=== PATIENT | female | born 1990 | race Hispanic/Latino ===

== ENCOUNTER 2024-07-22 20:30 | Observation (INO) | payer BC, SELFPAY ==
[2024-07-22 15:51] VITALS: BP 129/73
[2024-07-22 15:59] VITALS: BP 129/73
[2024-07-22 16:02] VITALS: BMI 27.0
--- NOTE | 2024-07-22 16:24 | ED.GENMED ---
History of Present Illness
General
Chief Complaint: Fall
Source: patient
Exam Limitations: none
Time Seen by Provider: 07/22/24 16:15
Nursing documentation reviewed up to this point in time: agreed with
History of Present Illness
History of Present Illness:
33-year-old female with history of asthma presents to the ER for evaluation of left flank pain after a fall. Patient was walking down a short set of stairs�3 total stairs. She said she slipped at the top and fell onto her left side. No head
strike but she injured her left flank/ribs. She has had severe pain since. EMS called and brought her to the emergency room for assessment. Denies any headache or neck pain. She denies any abdominal pain. She denies any shortness of breath.
She denies any injuries to her extremities. Denies being on blood thinners. She did receive IV fentanyl for pain control from EMS.
Review of Systems
Review of Systems
All Other Systems: ROS reviewed and negative except as documented in HPI and ROS
Constitutional: Denies fever
Respiratory: Denies trouble breathing
Cardiac: Denies chest pain
ABD/GI: Denies abdominal pain, nausea or vomiting
: Reports flank pain
Musculoskeletal: Reports back pain; Denies joint pain or neck pain
Neurological: Denies headache
Phy Exam
Physical Exam
Physical Exam:
General: Awake, alert; crying in bed appears very uncomfortable
Head: Normocephalic, atraumatic
Eyes: Conjunctiva normal, pupils equal round and reactive to light bilaterally
Throat: Airway intact, handling secretions
Neck: Trachea midline, no cervical spine tenderness
Lungs: Clear to auscultation bilaterally, no wheezing, rales, rhonchi
Heart: Regular rate and rhythm, no murmurs, gallops, or rubs; no anterior chest wall tenderness or crepitus
Abd: Soft, non distended, nontender
Back: Patient has severe tenderness posterior lateral left lower ribs and in the left lumbar region; no midline tenderness of the thoracic or lumbar spine and no spinal step-offs
Neuro: No gross deficits
Skin: No lacerations, abrasions, or ecchymosis noted
Extremities: Atraumatic, no reproducible tenderness in extremities, moving all extremities comfortably although she has pain in the left flank with flexion of her hips
Scores
Heart Failure Risk
Heart Failure Risk Score: Not Applicable
Heart Score for Chest Pain Patients
STEMI patient?: Not applicable
Withdrawal Assessment of Alcohol
Withdrawal Assessment Completed?: Not applicable
Course
Orders/Labs/Results
Orders:
Orders
07/22/24 16:16
CT Chest/abd/pel W Iv Cont Urgent
Comment:
Reason For Exam: severe left flank pain s/p fall down steps
Morphine Sulfate 4 mg IV NOW STA
07/22/24 16:17
Test Result ONCE
07/22/24 16:24
Acetaminophen [Tylenol] 1,000 mg PO NOW STA
07/22/24 16:47
Type+Screen Urgent
Complete Blood Count/With Diff Urgent
Comprehensive Metabolic Panel Urgent
HCG, Serum Qualitative Screen Urgent
Lipase Urgent
PTT Urgent
Prothrombin Time Urgent
07/22/24 17:52
Ketorolac [Toradol] 15 mg IV NOW STA
07/22/24 18:17
ABO2 Urgent
BBK Wristband Number:
Associate notified that ABO2 has been ordered: [id number]
Date: 07/22/24
Time: 16:58
Supervisor [employer] ID: [id number]
07/22/24 18:42
Oxycodone [Roxicodone] 5 mg PO NOW STA
Abnormal Lab Results
07/22/24
16:47
MPV 11.9 H fL
(7.4-10.4)
Abs Immat Gran (auto) 0.1 H 10^3/uL
(0-0.05)
Absolute Neuts (auto) 8.2 H 10^3/uL
(1.4-6.5)
Immature Gran % 0.6 H %
(0-0.5)
Neutrophils % 77.6 H %
(42.2-75.2)
Lymphocytes % 16.0 L %
(20.5-51.1)
Chloride 108 H mmol/L
(98-107)
Carbon Dioxide 17 L mmol/L
(22-30)
07/22/24 16:47
07/22/24 16:47
Vital Signs
Initial and Last Documented VS:
Initial Vital Signs
Temp Pulse Resp BP Pulse Ox
36.3 C 78 22 129/73 100
07/22/24 15:51 07/22/24 15:51 07/22/24 15:51 07/22/24 15:51 07/22/24 15:51
Last Documented Vital Signs
Temp Pulse Resp BP Pulse Ox
36.3 C 78 22 125/75 100
07/22/24 15:51 07/22/24 15:59 07/22/24 15:51 07/22/24 18:11 07/22/24 18:30
MDM/Problems Addressed
Differential Diagnosis Includes:
Rib fracture, flank hematoma, muscle strain, splenic injury, renal injury, vertebral fracture, pelvic fracture
MDM/Problems Addressed:
33-year-old female presents after a slip and fall as described above. Complaining of severe left flank pain. Vitals and exam as above. Place an IV check labs including a CBC and a CMP, type and screen. Check hCG. Sent for a CT of the
chest/abdomen/pelvis. IV morphine for pain control. Monitor closely reassess after the above.
Labs reviewed: CBC and CMP no clinically significant abnormalities. Her hCG is negative. CT of the chest/abdomen/pelvis shows nondisplaced L2 transverse process fracture but no other acute posttraumatic injuries. Plan for discharge, follow-up
with PCP as an outpatient.
After initial plan for discharge patient was having significant pain when she tried to get up out of bed she feels that she cannot manage her pain and needs to be admitted. Will admit for pain management. Discussed with hospitalist.
*Radiology
Radiology exam reviewed: radiology read reviewed
*Pulse Oximetry
Patient hypoxic: no
*Critical Care Note
Total Time (30-74mins, 75-104mins- exclusive of procedures): Not Applicable
Data Reviewed
Source: patient and spouse
Patient Management
Discussion with other providers: Hospitalist (Discussed with hospitalist)
Escalation/DeEscalation of care consider admission/obs:
Admission indicated
ED Attending Note
-
Portions of this chart may have been created with voice recognition software.� Occasional wrong word or��sound alike� substitutions may have occurred due to the inherent limitations of voice recognition software.
Discharge Plan
Departure
Patient Disposition: Admit
Date of Disposition: 07/22/24
Time of Disposition: 18:48
Admit to doctor: Yisel
Presentation/result/management discussed w/ accepting MD/DO: Hospitalist
Patient with high blood pressure during this ER visit?: No
Discharge Problem:
Closed fracture of transverse process of lumbar vertebra
Prescriptions:
New
oxycodone 5 mg tablet
5 mg PO Q6H PRN (Reason: Pain) Qty: 14 0RF
Interventions
Interventions:
*Risk Screen - Suicide Last Done: 07/22/24 15:59
*General Assessment Last Done: 07/22/24 16:00
*Neglect/Abuse Screening Last Done: 07/22/24 16:00
*ED- Fall Risk Assessment Last Done: 07/22/24 16:02
*ED COVID-19 Vaccine History Last Done: 07/22/24 16:02
ED-Musculoskeletal Assessment Last Done: 07/22/24 16:03
ED- Neurological Assessment Last Done: 07/22/24 16:03
ED-Skin Assessment Last Done: 07/22/24 16:03
Discharge Date and Time
Print Language: UZBEK
[2024-07-22] MEDS: MORPHINE SULFATE 4 MG IV (16:42)
[2024-07-22] MEDS: TYLENOL 1000 MG PO (16:42)
[2024-07-22 16:55] LABS: % Basophils 0.5 % (0-2); % Eosinophils 0.3 % (0-6); % Immature Granulocytes 0.6 % (0-0.5); % Neutrophils 77.6 % (42.2-75.2); Absolute Basophils 0.1 10^3/uL (0-0.2); Absolute Immature Granulocytes 0.1 10^3/uL (0-0.05); Absolute Lymphocytes 1.7 10^3/uL (1.2-3.4); Absolute Monocytes 0.5 10^3/uL (0.1-0.6); Absolute Neutrophils 8.2 10^3/uL (1.4-6.5); Hematocrit 40.4 % (37.0-47.0); Hemoglobin 13.9 g/dL (12.0-16.0); Mean Corp Hgb Conc. 34.4 g/dL (33.0-37.0); Mean Corpuscular Hgb 29.3 pg (27.0-31.0); Mean Corpuscular Volume 85.1 fL (81.0-99.0); Mean Platelet Volume 11.9 fL (7.4-10.4); Nucleated Red Blood Cells % 0 %; Platelet Count 251 10^3/uL (130-400); Red Blood Cell Count 4.75 10^6/uL (4.20-5.40); Red Cell Dist. Width 12.4 % (11.5-14.5); White Blood Cell Count 10.5 10^3/uL (4.8-10.8)
[2024-07-22 17:06] LABS: INR 0.99; PT 13.4 Sec (11.4-14.6)
[2024-07-22 17:07] LABS: APTT 27.7 Sec (23.4-35.0)
[2024-07-22 17:14] LABS: ALT (SGPT) 18 U/L (0-35); AST (SGOT) 25 U/L (14-36); Albumin 4.7 g/dl (3.5-5.0); Alkaline Phosphatase 79 U/L (38-126); Blood Urea Nitrogen 8 mg/dl (7-17); Calcium 9.3 mg/dl (8.4-10.2); Carbon Dioxide 17 mmol/L (22-30); Chloride 108 mmol/L (98-107); Estimated Creatinine Clearance 104 ml/min; Glucose 87 mg/dl (70-99); Lipase 98 U/L (23-300); Sodium 137 mmol/L (135-145); Total Bilirubin 0.8 mg/dl (0.2-1.3); Total Protein 7.6 g/dl (6.3-8.2); eGFR > 60.00
[2024-07-22 17:17] LABS: HCG, Serum Qualitative Screen Negative
[2024-07-22 18:11] VITALS: BP 125/75
[2024-07-22] MEDS: TORADOL 15 MG IV (18:31)
[2024-07-22] MEDS: ROXICODONE 5 MG PO ×2 (19:12→22:36)
[2024-07-22] MEDS: DILAUDID 0.5 MG IV ×2 (19:27→23:18)
--- NOTE | 2024-07-22 19:43 | HPS.HSE ---
Family Physician
-
Family Physician: NOT KNOW UNKNOWN - PT DOES
Chief Complaint
-
Fall and back pain
History of Present Illness
HPI
33F HX asthma seen at ER for evaluation of left flank pain after a fall.
- was walking down a short set of stairs�3 total stairs
- she slipped at the top and fell onto her left side.
- No head strike but she injured her left flank/ribs
- has had severe pain since.
- EMS called and brought her to the emergency room for assessment.
- She did receive IV fentanyl for pain control from EM
ROS
- denies any headache or neck pain.
- denies any abdominal pain.
- denies any shortness of breath.
- denies any injuries to her extremities.
- denies being on blood thinners.
Medical History
Past Medical History
Past Medical History: Reports Asthma
Past Surgical History: Reports None
Social History
Tobacco: Non-smoker
Alcohol: None
Drug: None
Family History
Family History: Not pertinent
Allergies / Home Medications
Allergies reflects when Allergies were last updated in [facility].
Home Medications with original date entered in [facility]
Allergy/Medication List:
Allergies
Allergy/AdvReac Type Severity Reaction Status Date / Time
No Known Allergies Allergy Verified 07/22/24 15:51
Home Medications
No Meds [No Current Medications] 07/22/24
Review of Systems
-
Constitutional: Reports No Symptoms
EENT: Reports No Symptoms
Respiratory: Reports No Symptoms
Cardiac: Reports No Symptoms
Abdomen/GI: Reports No Symptoms
: Reports No Symptoms
Musculoskeletal: Reports See HPI
Skin: Reports No Symptoms
Neurological: Reports No Symptoms
Endocrine: Reports No Symptoms
Hematologic/Lymphatic: Reports No Symptoms
Psych: Reports No Symptoms
Physical Exam
Vital Signs
Vital Signs
Temp Pulse Resp BP Pulse Ox
97.4 F 76 22 125/75 100
07/22/24 15:51 07/22/24 19:34 07/22/24 15:51 07/22/24 18:11 07/22/24 19:34
Physical Exam
General: Appears in Distress and Pain
HEENT: NormoCephalic, Anicteric, Moist mucous membranes and Atraumatic
Respiratory: Clear
Cardiac: S1/S2 and Regular Rhythm
Breast: Deferred by me
GI: Soft, Non Tender, Non Distended and Normal Bowel Sounds
Rectal: Deferred by Provider
Genito-urinary: Deferred by me
Musculoskeletal: No Edema and Other (severe tenderness posterior lateral left lower ribs and in the left lumbar region; no midline tenderness of the thoracic or lumbar spine and no spinal step-offs)
Skin: Warm
Hematologic/Lymphatic: Lymphadenopathy
Psych: Calm
Laboratory Results
-
07/22/24 16:47
07/22/24 16:47
Laboratory Results
PT 13.4 Sec (11.4-14.6) 07/22/24 16:47
INR 0.99 07/22/24 16:47
APTT 27.7 Sec (23.4-35.0) 07/22/24 16:47
Total Bilirubin 0.8 mg/dl (0.2-1.3) 07/22/24 16:47
AST 25 U/L (14-36) 07/22/24 16:47
ALT 18 U/L (0-35) 07/22/24 16:47
Alkaline Phosphatase 79 U/L (38-126) 07/22/24 16:47
Lipase 98 U/L (23-300) 07/22/24 16:47
Data Reviewed
-
CT Scan: Report Reviewed by me
Lab Data: Labs Reviewed by me
Impression/Plan
-
Vital Signs
Temp Pulse Resp BP Pulse Ox
97.4 F 76 22 125/75 100
07/22/24 15:51 07/22/24 19:34 07/22/24 15:51 07/22/24 18:11 07/22/24 19:34
Abnormal Lab Results
07/22/24
16:47
MPV 11.9 H
Abs Immat Gran (auto) 0.1 H
Absolute Neuts (auto) 8.2 H
Immature Gran % 0.6 H
Neutrophils % 77.6 H
Lymphocytes % 16.0 L
Chloride 108 H
Carbon Dioxide [address] Chest/abd/pel W Iv Cont
- There is a nondisplaced left L2 transverse process fracture.
- No evidence of acute trauma within the chest, abdomen, or pelvis.
- There is mild right-sided hydroureteronephrosis without definite obstructing stone.
- There is a 4 mm nonobstructing stone in the inferior pole the right kidney.
- The urinary bladder is moderately distended.
- Enhancing foci along the uterus, likely uterine fibroids.
NO PRIOR hospitalist admission:
ASSESSMENT & PLAN
Mechanical Fall
Associated severe Lt back pain due to nondisplaced left L2 transverse process Fx
- No evidence of acute trauma within the chest, abdomen, or pelvis.
- For pain control
- PRN Analgesia by [place] [facility]
- PRN anti emetics
- PRN BW regime
- PT/OT consult
DVT Px: LMWH
Full code
OBS MS
[2024-07-22 22:09] VITALS: BMI 28.5
[2024-07-22 22:10] VITALS: BP 113/74
[2024-07-22] MEDS: SENOKOT 17.2 MG PO (22:32)
[2024-07-22] MEDS: COLACE 100 MG PO (22:32)
[2024-07-22] MEDS: TYLENOL 650 MG PO (23:21)
[2024-07-23] MEDS: TYLENOL PO (04:52)
[2024-07-23] MEDS: DILAUDID 0.5 MG IV (06:12)
[2024-07-23 07:00] VITALS: BP 123/71
[2024-07-23] MEDS: SENOKOT 17.2 MG PO ×2 (08:52→21:36)
[2024-07-23] MEDS: TYLENOL 650 MG PO (08:52)
[2024-07-23] MEDS: COLACE 100 MG PO ×2 (08:52→21:36)
--- NOTE | 2024-07-23 09:13 | W.PN.HOSP.TC ---
Today's Communication/Plan
-
MRI L spine
UA
Pain control
USS Kd
Assessment / Plan
Assessment / Plan
32-year-old female who was walking down the stairs and she slipped on her socks and slid down and landed on the bottom. She is 3 stairs. Denies hitting head or any other parts of the body. She has severe back pain mostly on the left side. Prior
to the fall stated that she was feeling good no hematuria no other complaints.
On examination patient is in pain
Awake alert oriented
Cardiovascular system S1-S2 appreciated
Chest clear to auscultation
Lower back lumbar area pain with radiation to the left
Neuro intact except for movements limited because of pain
# Nondisplaced left L2 transverse process fracture with severe pain
Pain control
I have texted neurosurgery to take a look at the CT scan, recommended an MRI.
Pain control, Tylenol [id number], ibuprofen, muscle relaxants, lidocaine patch
Advised the patient that she can use narcotics only if absolutely needed
PT/OT
# Hydronephrosis-4 mm stone in the kidney not in the ureter. Check ultrasound, urinalysis
# DVT prophylaxis-Lovenox
Discussed with nursing
Anticipated Discharge: Within 24 hours
Subjective/Interval History
-
Date of Service: July 23, 2024
Objective Data
-
Vital Signs:
Vital Signs
Temp Pulse Resp BP Pulse Ox
98.1 F 75 16 123/71 99
07/23/24 07:00 07/23/24 07:00 07/23/24 07:00 07/23/24 07:00 07/23/24 07:00
I&O
07/22/24 07/23/24 07/24/24
06:59 06:59 06:59
Intake Total 480 / 480
Balance 480 / 480
[2024-07-23] MEDS: DILAUDID 0.25 MG IV ×2 (10:25→21:41)
[2024-07-23] MEDS: LIDOCAINE 4% PATCH 1 PATCH TOPICAL (10:26)
[2024-07-23] MEDS: PEPCID 20 MG PO ×2 (10:28→21:36)
[2024-07-23] MEDS: MIRALAX 17 GRAMS PO (10:28)
[2024-07-23] MEDS: TYLENOL 1000 MG PO ×2 (12:31→17:35)
[2024-07-23 12:47] LABS: Urine Albumin 2+ (Neg - Trace); Urine Bilirubin Negative (Negative); Urine Character Clear (Clear); Urine Color Yellow; Urine Glucose Negative (Negative); Urine Ketone 2+ (Negative); Urine Leukocyte Negative (Negative); Urine Nitrite Negative (Negative); Urine Occult Blood Negative (Negative); Urine Specific Gravity 1.015 (<1.030); Urine Urobilinogen Negative (Neg - 1+)
[2024-07-23 13:20] LABS: Urine Bacteria Few (Negative); Urine Red Blood Cell 0-2 /HPF (0-2); Urine White Cell 0-2 /HPF (0-5)
--- NOTE | 2024-07-23 13:22 | CM ---
Patient seen at bedside with patient at bedside. Patient stated that she lives with her in a 2 story home. Patient has no past need for DME or VN. Patient here as OBS and CM provided form and reviewed with patient and . they
indicated they wanted to wait to sign form but indicated that they understood OBS status. Patient indicated that her PCP is from the [facility] but does not know how long ago it was that she had been seen. Patient uses the [facility] in
[place] for pharmacy needs. Patient indicated that she may need a walker for discharge, pending PT/OT assessment. CM will continue to follow for discharge planning needs.
Plan; home with VN vs home with no needs pending medical treatment plan
--- NOTE | 2024-07-23 13:47 | CON.NS ---
Documented by User: Anahi Jett PA-C 07/23/24 14:22
Chief Complaint
-
back pain
History of Present Illness
This is a 33 y/o F who presented to the ED after she fell down 3 steps. Patient states she was wearing socks and slipped and fell. She had immediate left low back pain with radiation into the left buttock. She denies any radicular pain. She has left
back pain when she moves. CT lumbar spine demonstrated L2 TP fracture on the left. Neurosurgery was consulted.
Review of Systems
-
a 10 point review of symptoms was obtained and is negative except for what is mentioned in the HPI.
Medical History
Past Medical History
Past Medical History: Reports Asthma
Medication and Allergies
Home Medications
Home Medications
�Medication �Instructions �Recorded
No Meds [No Current Medications] 07/22/24
Allergies
Allergies
Allergy/AdvReac Type Severity Reaction Status Date / Time
No Known Allergies Allergy Verified 07/22/24 15:51
Physical Exam
-
Exam:
VSS
CN 2-12 grossly intact
speech: clear/fluent
EOMI
motor: 5/5
sensation intact to crude touch
no swelling or edema in LE
Non labored breathing.
no rashes/lesions
CT Chest/Abdomen/Pelvis personally reviewed and interpreted by myself and attending.
Exams: CT Chest/abd/pel W Iv Cont
Contrast-enhanced CT of the chest, abdomen, and pelvis dated 07/22/2024 5:35 PM.
Indication: Severe left flank pain status post fall downstairs.
Comparison: None .
Technique: After the injection of intravenous nonionic iodinated contrast, axial CT of the chest, abdomen, and pelvis was performed from the lung apices to the inferior osseous pelvis. 2-D reformats were obtained. Automatic exposure control
radiation dose reduction technology was utilized.
FINDINGS:
CHEST
Lungs/Airways: No lung laceration or contusion.
Pleura: No pleural fluid or pneumothorax.
Vessels: No evidence of acute traumatic injury to the aorta or great vessels.
Heart: No significant pericardial fluid.
Mediastinum and Shannan: No abnormal mediastinal fluid or gas.
Soft Tissues: No focal fluid collections.
Bones: No acute fracture. Sclerotic focus within the T10 vertebral body, likely bone island.
ABDOMEN AND PELVIS
Liver: No laceration, hematoma, or contusion. Small calcification along the posterior aspect of the right hepatic lobe which is benign and may represent a small calcified granuloma.
Gallbladder/Bile ducts: Unremarkable.
Adrenals: No adrenal hemorrhage.
Kidneys: No renal laceration or shadia-renal fluid collection. 4 mm nonobstructing stone in the inferior pole the right kidney. Punctate hypodensity in the interpole the left kidney (series 302 image 39) too small to accurately characterize however
may represent a small cyst.
Pancreas: Normal enhancement without shadia-pancreatic fluid collections.
Spleen: No laceration or contusion.
Bowel: No wall thickening, luminal dilation, or abnormal enhancement.
Peritoneum: No free intraperitoneal fluid or gas. No mesenteric fluid collections.
Retroperitoneal: No retroperitoneal gas or fluid collections.
Reproductive Organs: Likely uterine fibroids.
Urinary Bladder: Moderately distended.
Vasculature: No evidence acute vascular injury in the abdomen or pelvis. Retroaortic left renal vein.
Abdominal Wall: No focal fluid collection. Small fat-containing umbilical hernia.
Bones: There is a nondisplaced fracture through the left L2 transverse process (series 301 image 39 and series 302 image 41).
IMPRESSION:
There is a nondisplaced left L2 transverse process fracture.
Problems
-
Problem Status Onset Code
Closed fracture of transverse process of lumbar vertebra S32.009A
Assessment / Plan
-
This is a 33 y/o F with LEFT L2 Transverse Process fracture.
--imaging reviewed. No acute neurosurgical intervention indicated
--Abdominal binder for comfort when upright and ambulating. Order placed. [facility].
--recommend Muscle relaxant
--pain control per primary team
--patient discussed and imaging reviewed by Dr. Mejia. Neurosurgery to sign off.

Documented by User: Renata Mejia MD 07/23/24 14:46
Problems
-
Problem Status Onset Code
Closed fracture of transverse process of lumbar vertebra S32.009A
Assessment / Plan
-
This is a 33 y/o F with LEFT L2 Transverse Process fracture.
--imaging reviewed. No acute neurosurgical intervention indicated
--Abdominal binder for comfort when upright and ambulating. Order placed. Please contact [facility].
--recommend Muscle relaxant
--pain control per primary team
--patient discussed and imaging reviewed by Dr. Mejia. Neurosurgery to sign off.
ATTENDING ATTESTATION:
IMaging reviewed. Patient with left L2 TP fracture.
Non surgical fracture.
AGree with above plan.
[2024-07-23 15:00] VITALS: BP 102/67
[2024-07-23] MEDS: MOTRIN 600 MG PO ×2 (15:02→21:36)
[2024-07-23 17:35] VITALS: BP 118/95
[2024-07-23] MEDS: LOVENOX 40 MG SC (17:35)
--- NOTE | 2024-07-23 17:36 | PTCARENOTE ---
pt transferred from 1 acute to 2S report called, belongings sent
--- NOTE | 2024-07-23 18:28 | PTCARENOTE ---
Received pt from [facility]. Received report from RN, Melanie. Pt brought in bed. Purewick in place d/t 01/16 pain with movement. Reports 08/16 pain without movement. Scheduled medications administered, see MAR. No complaints at this time. Call palmer
within reach, bed locked and in lowest position.
[2024-07-23] MEDS: FLEXERIL 5 MG PO (21:37)
[2024-07-23 23:20] VITALS: BP 108/71
[2024-07-24] MEDS: TYLENOL 1000 MG PO ×3 (02:29→16:54)
[2024-07-24 07:35] VITALS: BP 103/66
[2024-07-24] MEDS: DILAUDID 0.25 MG IV ×3 (07:36→20:25)
[2024-07-24] MEDS: SENOKOT 17.2 MG PO ×2 (07:39→20:22)
[2024-07-24] MEDS: COLACE 100 MG PO ×2 (07:39→20:22)
[2024-07-24] MEDS: MOTRIN 600 MG PO ×3 (07:40→22:31)
[2024-07-24] MEDS: LIDOCAINE 4% PATCH 1 PATCH TOPICAL (07:40)
[2024-07-24] MEDS: PEPCID 20 MG PO ×2 (07:40→20:22)
[2024-07-24] MEDS: MIRALAX 17 GRAMS PO (07:40)
[2024-07-24 08:35] LABS: Blood Urea Nitrogen 11 mg/dl (7-17); Carbon Dioxide 21 mmol/L (22-30); Chloride 108 mmol/L (98-107); Estimated Creatinine Clearance 91 ml/min; Glucose 86 mg/dl (70-99); Potassium 4.4 mmol/L (3.5-5.1); Sodium 138 mmol/L (135-145); eGFR > 60.00
--- NOTE | 2024-07-24 10:24 | W.PN.HOSP.TC ---
Today's Communication/Plan
-
U/A
PT OT
BRace
MRI
Possible discharge if all ok
Assessment / Plan
Assessment / Plan
32-year-old female who was walking down the stairs and she slipped on her socks and slid down and landed on the bottom. She is 3 stairs. Denies hitting head or any other parts of the body. She has severe back pain mostly on the left side. Prior
to the fall stated that she was feeling good no hematuria no other complaints.
On examination patient says pain better, still has some
Awake alert oriented
Cardiovascular system S1-S2 appreciated
Chest clear to auscultation
Lower back lumbar area pain with radiation to the left
Neuro intact except for movements limited because of pain
# Nondisplaced left L2 transverse process fracture with severe pain
Pain control
Neurosurgery eval appreciated
Pain control, Tylenol [id number], ibuprofen, muscle relaxants, lidocaine patch
Advised the patient that she can use narcotics only if absolutely needed
PT/OT
LSO brace ordered
# Hydronephrosis-4 mm stone in the kidney not in the ureter. Ultrasound, urinalysis noted. Mild right hydro
Dark urine now
Rpt U/A and also check CPK levels
# DVT prophylaxis-Lovenox
Discussed with at bed side
Anticipated Discharge: Within 24 hours
Subjective/Interval History
-
Date of Service: July 24, 2024
Objective Data
-
Labs:
Laboratory Results
07/24/24
07:14
Sodium 138
Potassium 4.4
Chloride 108 H
Carbon Dioxide 21 L
BUN 11
Creatinine 0.7
Glucose 86
Calcium 9.0
Vital Signs:
Vital Signs
Temp Pulse Resp BP Pulse Ox
97.5 F 72 16 103/66 99
07/24/24 07:35 07/24/24 07:35 07/24/24 07:35 07/24/24 07:35 07/24/24 07:35
I&O
07/23/24 07/24/24 07/25/24
06:59 06:59 06:59
Intake Total 1080 / 1080 240 / 240
Balance 1080 / 1080 240 / 240
[2024-07-24 10:43] VITALS: BP 134/80; BP 140/86; PULSE 94; O2SAT 99
[2024-07-24 10:46] VITALS: BP 134/80; BP 140/86; PULSE 96; O2SAT 99
[2024-07-24 11:34] LABS: Creatine Phosphokinase 62 U/L (30-135)
[2024-07-24] MEDS: ROXICODONE 5 MG PO (11:56)
[2024-07-24 13:22] LABS: Urine Albumin 2+ (Neg - Trace); Urine Bilirubin Negative (Negative); Urine Character Clear (Clear); Urine Color Yellow; Urine Glucose Negative (Negative); Urine Ketone 1+ (Negative); Urine Leukocyte 3+ (Negative); Urine Nitrite Negative (Negative); Urine Occult Blood Negative (Negative); Urine Specific Gravity 1.015 (<1.030); Urine Urobilinogen Negative (Neg - 1+)
[2024-07-24 13:31] LABS: Urine Bacteria Moderate (Negative); Urine Red Blood Cell 0-2 /HPF (0-2); Urine Squamous Cell >30 /LPF (Few); Urine White Cell 21-25 /HPF (0-5)
--- NOTE | 2024-07-24 14:08 | CM ---
Patient with family greeting CM at bedside. Patient stated oh, yes, nothing changed since yesterday. Patient remains OBS. CM will continue to follow for discharge planning needs.
Plan; home with
--- NOTE | 2024-07-24 14:49 | W.PN.UPDATE ---
Update Note
Progress Note Update
Repeat urinalysis noted 0-2 RBCs patient does have albuminuria bacteriuria but she does not have any symptoms of UTI. Nursing reports that this is clean-catch but patient still has squamous cells.
Urine is dark with normal bilirubin. Normal CPK levels and 0-2 RBCs.
ill 1 L order IVF and watch
Nephrology eval also requested.
[2024-07-24 15:00] VITALS: BP 121/75
--- NOTE | 2024-07-24 15:25 | W.CON.NEPH ---
Consultation
-
Date/Time Consultation Requested: 07/24/2024 at 3 PM
Date/Time Consultation Performed: 07/24/2024 at 3:30 PM
Requesting Provider: Dr. cruz
Performing Provider: Dr. Magallanes
Reason for Consultation: Albuminuria
Medical History
-
Chief Complaint: Albuminuria
History of Present Illness:
33 y/o F who presented to the ED after she fell down 3 steps. Patient states she was wearing socks and slipped and fell. She had immediate left low back pain with radiation into the left buttock. She denies any radicular pain. She has left back pain
when she moves. CT lumbar spine demonstrated L2 TP fracture on the left
Renal consult for incidental finding of 2+ albumin
Patient has no other medical history. She is a non-smoker no alcohol use has 3 children with no difficulties during in terms of proteinuria . She states she had gestational hypertension towards the end of her eldest that
resolved after
Past Medical History
2 pregnancies otherwise no medical history
Social History
Tobacco: Non-Smoker
Alcohol: None
Family History
No renal disease
Family History: Not Pertinent
Allergies / Home Medications
Allergy/AdvReac Type Severity Reaction Status Date / Time
No Known Allergies Allergy Verified 07/22/24 15:51
�Medication �Instructions �Recorded �Confirmed �Type
No Meds [No Current Medications] 07/22/24 07/22/24 History
Review of Systems
-
Back pain
All other systems: Negative unless noted
Physical Exam
Vital Signs
Vital Signs
Temp Pulse Resp BP Pulse Ox
98 F 81 14 121/75 98
07/24/24 15:00 07/24/24 15:00 07/24/24 15:00 07/24/24 15:00 07/24/24 15:00
Lab Results
WBC 10.5 10^3/uL (4.8-10.8) 07/22/24 16:47
RBC 4.75 10^6/uL (4.20-5.40) 07/22/24 16:47
Hgb 13.9 g/dL (12.0-16.0) 07/22/24 16:47
Hct 40.4 % (37.0-47.0) 07/22/24 16:47
Plt Count 251 10^3/uL (130-400) 07/22/24 16:47
Sodium 138 mmol/L (135-145) 07/24/24 07:14
Potassium 4.4 mmol/L (3.5-5.1) 07/24/24 07:14
Chloride 108 mmol/L (98-107) H 07/24/24 07:14
Carbon Dioxide 21 mmol/L (22-30) L 07/24/24 07:14
BUN 11 mg/dl (7-17) 07/24/24 07:14
Creatinine 0.7 mg/dL (0.6-1.0) 07/24/24 07:14
eGFR > 60.00 07/24/24 07:14
Glucose 86 mg/dl (70-99) 07/24/24 07:14
Calcium 9.0 mg/dl (8.4-10.2) 07/24/24 07:14
Albumin 4.7 g/dl (3.5-5.0) 07/22/24 16:47
Physical Exam
General no acute distress
HEENT no cephalic atraumatic extraocular muscle intact no scleral icterus no JVD neck supple
extremities no edema pulses present bilateral
Neurologically nonfocal alert and oriented x 3
Skin no lesions no abrasions no petechiae
Psych normal affect no bizarre behavior
Data Reviewed
-
Labs: Labs Reviewed by me, Discussed with Physician, Discussed with Nurse, Discussed with Patient and Discussed with Family
Assessment/Plan
-
33 y/o F who presented to the ED after she fell down 3 steps. Patient states she was wearing socks and slipped and fell. She had immediate left low back pain with radiation into the left buttock. She denies any radicular pain. She has left back pain
when she moves. CT lumbar spine demonstrated L2 TP fracture on the left
Impression.
2+ albumin.
CT lumbar spine demonstrated L2 TP fracture on the left
Plan.
2+ albuminuria= no risk factors. No family history of renal disease or autoimmune disease
Check protein creatinine ratio
Positive ketones in urine with dark color.= May indicate patient is not eating as she said she has not eaten much since the fall
Agree with IV fluid
Urine culture
Will follow
[2024-07-24] MEDS: NSS 1000 IV (15:31)
[2024-07-24 16:10] LABS: Urine Protein 14 mg/dl
[2024-07-24 16:47] LABS: Protein/creatinine Ratio 0.1
[2024-07-24] MEDS: LOVENOX 40 MG SC (16:54)
[2024-07-24 23:15] VITALS: BP 101/61
[2024-07-25] MEDS: TYLENOL 1000 MG PO ×2 (01:46→08:48)
[2024-07-25 07:13] VITALS: BP 98/65
[2024-07-25] MEDS: ROXICODONE 5 MG PO ×2 (08:47→14:17)
[2024-07-25] MEDS: MOTRIN 600 MG PO (08:48)
[2024-07-25] MEDS: LIDOCAINE 4% PATCH 1 PATCH TOPICAL (08:49)
[2024-07-25] MEDS: PEPCID 20 MG PO (08:50)
[2024-07-25] MEDS: MIRALAX 17 GRAMS PO (08:50)
[2024-07-25] MEDS: COLACE PO (08:55)
[2024-07-25] MEDS: SENOKOT PO (08:56)
[2024-07-25 10:58] VITALS: BP 116/74; PULSE 81; O2SAT 98
[2024-07-25 11:49] VITALS: BP 116/74; PULSE 92; O2SAT 98
--- NOTE | 2024-07-25 13:01 | W.PN.HOSP.TC ---
Addendum entered and electronically signed by Natalia Ibrahim MD 07/25/24 13:26:
Patient denies any dysuria
Spoke to micro-cultures possible polymicrobial
Patient had more than 30 squamous cells in the urine
Original Note:
Today's Communication/Plan
-
Discharge home
Assessment / Plan
Assessment / Plan
32-year-old female who was walking down the stairs and she slipped on her socks and slid down and landed on the bottom. She is 3 stairs. Denies hitting head or any other parts of the body. She has severe back pain mostly on the left side. Prior
to the fall stated that she was feeling good no hematuria no other complaints.
On examination patient says pain better, still has some
Awake alert oriented
Cardiovascular system S1-S2 appreciated
Chest clear to auscultation
Lower back lumbar area pain
Neuro intact except for movements limited because of pain
Patient's urine looks much clearer today with IV fluids
# Nondisplaced left L2 transverse process fracture with severe pain
Pain control
Neurosurgery eval appreciated
Pain control, Tylenol [id number], ibuprofen, muscle relaxants, lidocaine patch
Advised the patient that she can use narcotics only if absolutely needed
PT/OT
LSO brace ordered
# mild Hydronephrosis-4 mm stone in the kidney not in the ureter. Ultrasound, urinalysis noted. Mild right hydro
Dark urine now
OP Urology follow up
#Albuminuria- Op Nephrology follow up
# Mild [place] - OP Urology follow up. With dark urine prob passed a stone.
# DVT prophylaxis-Lovenox
Discussed with at bed side
Detailed discussion and explanation to the patient regarding MRI findings. Advised her not to lift any weights or do anything strenuous for the next 4 to 6 weeks. She is allowed to do daily activities. OP follow up for albuminuria discussed
D/W Nephrology
D/W at bed side
Physical therapy worked with the patient. Prescription for rolling walker provided she also has a brace
Discussed with PT
More than 30 minutes spent in discharge including
Final examination of the patient
Summarizing hospital stay
Instructions for continuing care to all relevant caregivers
Preparation of discharge records, prescriptions, and referral forms
Total time spent (in minutes): 40 min
Anticipated Discharge: Today
Subjective/Interval History
-
Date of Service: July 25, 2024
Objective Data
-
Vital Signs:
Vital Signs
Temp Pulse Resp BP Pulse Ox
98.2 F 82 17 98/65 99
07/25/24 07:13 07/25/24 07:13 07/25/24 07:13 07/25/24 07:13 07/25/24 07:13
I&O
07/24/24 07/25/24 07/26/24
06:59 06:59 06:59
Intake Total 240 / 240 480 / 480
Balance 240 / 240 480 / 480
--- NOTE | 2024-07-25 13:22 | W.DS.TRANS ---
Addendum entered and electronically signed by Natalia Ibrahim MD 07/25/24 16:37:
Dictation- [id number]
Original Note:
DC Summary - Sheet Layer
-
Discharge Instructions:
Discharge Diagnosis/Procedures Nondisplaced L2 transverse process fracture
Mild hydronephrosis right side
4 mm stone in the lower pole of the right
kidney
Albuminuria
Fibroids
Diet As tolerated
Activity As tolerated,No strenuous activity
Additional Activity Do not lift any weights more than 5 pounds
Others Tests Repeat urine analysis with your next doctor
visit
Other Services VN
Instructions:
Stand-Alone Forms:
Changes to Home Medications: Yes
Discharge Medications:
DC Medications w/original date entered in [facility]
acetaminophen 500 mg tablet (Tylenol Extra Strength) 1,000 mg (2 x 500 mg) PO Q8HPRN PRN mild pain #0 tabs 07/25/24
cyclobenzaprine 10 mg tablet 5 mg (1/2 x 10 mg) PO Q8HPRN PRN spasm #15 tabs 07/25/24
famotidine 20 mg tablet 20 mg PO BID PRN when you take Motrin #40 tabs 07/25/24
ibuprofen 600 mg tablet 600 mg PO TIDPRN PRN moderate pain #20 tabs 07/25/24
lidocaine 4 % topical patch 1 patch topical DAILY pain #30 ea 07/25/24
oxycodone 5 mg tablet 5 mg PO Q6HPRN PRN pain not controlled with Motrin #20 tabs 07/25/24
polyethylene glycol 3350 17 gram oral powder packet 17 g PO DAILY Constipation #0 ea 07/25/24
sennosides 8.6 mg tablet (senna) 8.6 mg PO HS Constipation #20 tabs 07/25/24
Home Medication Changes
all above new
Pending Results: Yes
Additional Pending Results:
final urine CX
--- NOTE | 2024-07-25 14:12 | CM ---
Addendum entered by Ludy Martinez 07/25/24 15:53:
PCP and discharge date updated to VN. await confirmation
Addendum entered by Ludy Martinez 07/25/24 14:30:
[facility] has availability and is reviewing referral. /AJ [phone]
Addendum entered by Ludy Martinez 07/25/24 14:22:
[facility]. [facility], await response.
Original Note:
Patient seen at bedside. CM again reviewed OBS status and patient given walker by therapy. CM sent referral to [facility], await confirmation of acceptance. CM will continue to follow for discharge planning needs.
Plan;home with VN; pending acceptance.
[2024-07-25 15:05] VITALS: BP 110/71
--- NOTE | 2024-07-25 17:53 | W.PN.UPDATE ---
Update Note
Progress Note Update
pt was in bathroom during visit
spoke with family in room
U PCR only 100mg/gm of cr no proteinuria per definition
nephro f/u for non obst stone and hydro
d/w primary
== END 2024-07-25 15:53 | disposition home health service (06) ==
LOC: 2 SOUTH 20:30
PROVIDERS: ADMITTING PHYSICIAN Internal Medicine; ATTENDING PHYSICIAN Hospitalist; CONSULT PHYSICIAN Internal Medicine Nephrology; CONSULT PHYSICIAN Neurological Surgery; EMERGENCY PHYSICIAN Emergency Medicine
DX: S32.028A Other fracture of second lumbar vertebra, initial encounter for closed fracture (principal); M54.50 Low back pain, unspecified; W10.8XXA Fall (on) (from) other stairs and steps, initial encounter; Y93.01 Activity, walking, marching and hiking; Y92.009 Unspecified place in unspecified non-institutional (private) residence as the place of occurrence of the external cause; J45.909 Unspecified asthma, uncomplicated; R80.9 Proteinuria, unspecified; N13.39 Other hydronephrosis; N20.0 Calculus of kidney; M51.27 Other intervertebral disc displacement, lumbosacral region; D25.9 Leiomyoma of uterus, unspecified
CPT/HCPCS: 71260; 72148; 74177; 76775; 80048; 80053; 81003; 81015; 82550; 82570; 83690; 84156; 84703; 85025; 85610; 85730; 86850; 86900; 86901; 87086; 96374; 96375; 97116; 97163; 97167; 97530; 97535; 99285; G0378; Q9967